=== PATIENT | female | born 2000 | race Caucasian/White ===

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

== ENCOUNTER 2020-08-04 16:06 | Outpatient (CLI) | payer OTHER, SELFPAY ==
--- NOTE | ~2020-08-04 | XR_ITS ---
XR chest 2V DATE: 08/04/2020 16:24 INDICATION: Left chest pain for 2 to 3 days. Cough. TECHNIQUE: PA and lateral views COMPARISON: 12/17/2019 PA and lateral chest FINDINGS: Normal heart size. No hilar or mediastinal enlargement. No pulmonary infiltrate or consolidation, pleural effusion or pulmonary vascular congestion or pneumo thorax. Mild dextro scoliosis of the thoracic spine. Levoscoliosis of the lumbar spine. IMPRESSION: No active cardiopulmonary disease Reviewed, dictated and finalized at location A. IZATION REVIEW RN
--- NOTE | 2020-08-04 16:28 | ECG_ITS ---
Measurements Intervals [place] Rate: 82 P: 2 SD: 108 QRS: 71 QRSD: 84 T: 47 QT: 393 QTc: 459 Interpretive Statements SINUS RHYTHM WITH SHORT SD INTERVAL MINIMAL Q WAVES- INFERIOR LEADS BORDERLINE ECG Electronically Signed On 08-04-2020 18:46:32 [employer] by Wilfredo Millan D.O.
== END 2020-08-04 16:07 | disposition home or self-care (01) ==
LOC: ANHIMG 16:10
PROVIDERS: Family Provider Pediatrics; PCP Family Medicine; Visit Provider Nurse Practitioner Family
DX: R07.9 Chest pain, unspecified (principal); R06.00 Dyspnea, unspecified; R00.0 Tachycardia, unspecified
CPT/HCPCS: 71046; 93005

== ENCOUNTER 2020-08-05 07:06 | Outpatient (NON) | payer OTHER, SELFPAY ==
[2020-08-06 18:46] LABS: SARS-CoV-2 RNA PCR Negative
== END 2020-08-05 07:07 ==
LOC: ANHCOVIDDT 07:06
PROVIDERS: Family Provider Pediatrics; PCP Family Medicine; Visit Provider Nurse Practitioner Family
DX: R68.89 Other general symptoms and signs (principal); Z20.822 Contact with and (suspected) exposure to COVID-19
CPT/HCPCS: C9803; U0003; U0005

== ENCOUNTER 2020-08-12 14:27 | Outpatient (CLI) | payer OTHER, SELFPAY ==
--- NOTE | ~2020-08-12 | XR_ITS ---
EXAMINATION: SCOLIOSIS DATE: 08/12/2020 18:31 BREAKFAST ATTENDANT INDICATION: Scoliosis TECHNIQUE: Standing AP and lateral views of the thoracolumbar spine FINDINGS: There are 12 rib bearing thoracic vertebral bodies and 5 non-rib bearing lumbar type verteb ral bodies. There is no listhesis, compression deformity or vertebral body anomalies. There is mild shaped scoliosis of the thoracolumbar spine. Dextrocurvature of the thoracic spine measures 10 degre es and levoscoliosis of the lumbar spine centered at L1 measures 13 degrees. IMPRESSION: 1. Mild S-shaped scoliosis of the thoracolumbar spine. 2. No vertebral body anomalies. Reviewed, dictated and finalized at location A. KFAST ATTENDANT
== END 2020-08-12 14:28 | disposition home or self-care (01) ==
LOC: ANHIMG 14:34
PROVIDERS: PCP Family Medicine; Visit Provider Nurse Practitioner Family
DX: R93.89 Abnormal findings on diagnostic imaging of other specified body structures (principal); Z13.828 Encounter for screening for other musculoskeletal disorder; M41.85 Other forms of scoliosis, thoracolumbar region
CPT/HCPCS: 72082